=== PATIENT | female | born 1990 | race Caucasian/White ===

== ENCOUNTER 2017-04-28 18:36 | Emergency (ER) | payer MEDICAID | END 2017-04-28 20:22 | disposition left against medical advice (07) | LOC: ER 20:06 | DX: M79.673 Pain in unspecified foot (principal); Z53.21 Procedure and treatment not carried out due to patient leaving prior to being seen by health care provider ==

== ENCOUNTER 2017-04-29 18:20 | Emergency (ER) | payer MEDICAID ==
[~2017-04-29] VITALS: Ht 162.6 cm; Wt 59.0 kg
[2017-04-29] MEDS ORDERED: KETOROLAC 30MG/ML VIAL IV ONE (20:45)
[2017-04-29] MEDS ORDERED: CEFAZOLIN 1000MG PREMIX 50 ML IV ONE (20:45)
[2017-04-29] MEDS ORDERED: BACITRACIN ZINC OINT UDPKT TOP ONE (20:45)
[2017-04-29] MEDS ORDERED: LIDOCAINE HCL 1% 20ML VIAL (Pyxis) INJ MC ONE (20:45)
[2017-04-29 21:28] LABS: HCG SCREEN NEGATIVE
[2017-04-29 21:50] VITALS: BP 130/91
== END 2017-04-29 22:05 | disposition home or self-care (01) ==
LOC: ER 20:23
DX: S90.821A Blister (nonthermal), right foot, initial encounter (principal); B96.89 Other specified bacterial agents as the cause of diseases classified elsewhere; F41.9 Anxiety disorder, unspecified; J45.909 Unspecified asthma, uncomplicated; F31.9 Bipolar disorder, unspecified; X58.XXXA Exposure to other specified factors, initial encounter; Y93.89 Activity, other specified; Y92.89 Other specified places as the place of occurrence of the external cause; Y99.8 Other external cause status
CPT/HCPCS: 84703; 99283; X7700

== ENCOUNTER 2017-05-30 13:35 | Emergency (ER) | payer MEDICAID ==
[~2017-05-30] VITALS: Ht 165.1 cm; Wt 64.0 kg
[2017-05-30 13:37] VITALS: BP 112/72
== END 2017-05-30 14:06 | disposition left against medical advice (07) ==
LOC: ER 13:44
DX: Z53.21 Procedure and treatment not carried out due to patient leaving prior to being seen by health care provider (principal); F41.9 Anxiety disorder, unspecified; J45.909 Unspecified asthma, uncomplicated; F31.9 Bipolar disorder, unspecified; F20.9 Schizophrenia, unspecified

== ENCOUNTER 2017-05-30 17:37 | Emergency (ER) | payer MEDICAID ==
[~2017-05-30] VITALS: Ht 160 cm; Wt 49.0 kg
[2017-05-30 17:44] VITALS: BP 132/83
== END 2017-05-30 20:30 | disposition left against medical advice (07) ==
LOC: ER 17:59
DX: Z53.21 Procedure and treatment not carried out due to patient leaving prior to being seen by health care provider (principal); F41.9 Anxiety disorder, unspecified; J45.909 Unspecified asthma, uncomplicated; F31.9 Bipolar disorder, unspecified; F20.9 Schizophrenia, unspecified; F15.10 Other stimulant abuse, uncomplicated

== ENCOUNTER 2019-05-03 17:16 | Emergency (ER) | payer MEDICAID ==
[~2019-05-03] VITALS: Ht 160 cm; Wt 47.0 kg
[2019-05-03] MEDS ORDERED: SODIUM CHLORIDE 0.9% 1,000 ML IV ONE ×2 (18:36→20:30)
[2019-05-03] MEDS ORDERED: ONDANSETRON HCL 4MG/2ML INJ IV STA (18:36)
[2019-05-03 18:58] LABS: BASOPHILS % 1.2 % (0.0-2.0); HEMATOCRIT. 35.7 % (36.0-48.0); HEMOGLOBIN. 12.2 g/dL (12.0-16.0); LYMPHOCYTES % 31.1 % (20.0-50.0); MEAN CORPUSCULAR HEMOGLOBIN 29.6 pg (28.0-32.0); MEAN CORPUSCULAR VOLUME 86.7 fL (81.0-99.0); MEAN PLATELET VOLUME 7.3 fl (7.4-10.4); MONOCYTES % 9.2 % (2.0-8.0); NEUTROPHILS % 55.5 % (40.0-76.0); PLATELET 319 x1000/uL (130-400); RED BLOOD CELL COUNT 4.12 mill/uL (4.2-5.4); RED CELL DISTRIBUTION WIDTH 15.7 % (11.6-14.6)
[2019-05-03 19:01] LABS: HCG SCREEN NEGATIVE
[2019-05-03 19:05] LABS: CHLORIDE 108 mEq/L (98-107)
[2019-05-03 19:09] LABS: ETHANOL BLOOD < 10 mg/dL
[2019-05-03 19:13] LABS: CREATINE KINASE 185 IU/L (26-192)
[2019-05-03 19:16] LABS: CREATINE KINASE MB FRACTION 3.3 ng/mL (0.5-3.6)
[2019-05-04 05:00] VITALS: BP 124/62
[2019-05-04 05:04] LABS: *BARBITURATES SCREEN URINE NEGATIVE (NEGATIVE); *COCAINE SCREEN URINE NEGATIVE (NEGATIVE); METHADONE URINE SCREEN NEGATIVE (NEGATIVE)
[2019-05-04 05:05] LABS: CANNABINOID URINE SCREEN NEGATIVE (NEGATIVE); OPIATES URINE SCREEN NEGATIVE (NEGATIVE); PHENCYCLIDINE URINE SCREEN NEGATIVE (NEGATIVE)
[2019-05-04 05:21] LABS: *AMPHETAMINES SCREEN URINE PRESUMTIVE POSITIVE (NEGATIVE); *BENZODIAZEPINES SCREEN URINE PRESUMTIVE POSITIVE (NEGATIVE)
== END 2019-05-04 07:33 | disposition home or self-care (01) ==
LOC: ER 17:16
DX: T43.621A Poisoning by amphetamines, accidental (unintentional), initial encounter (principal); T40.991A Poisoning by other psychodysleptics [hallucinogens], accidental (unintentional), initial encounter; G92 Toxic encephalopathy; F41.9 Anxiety disorder, unspecified; F31.9 Bipolar disorder, unspecified; J45.909 Unspecified asthma, uncomplicated; F20.9 Schizophrenia, unspecified; Y92.488 Other paved roadways as the place of occurrence of the external cause
CPT/HCPCS: 36415; 70450; 80053; 80305; 80320; 82550; 82553; 83690; 84443; 84484; 84703; 85025; 93005; 96361; 96374; 99284; J2405; J7030; Z7610; G0480

== ENCOUNTER 2019-07-26 05:21 | Emergency (ER) | payer MEDICAID | END 2019-07-26 06:45 | disposition left against medical advice (07) | LOC: ER 06:28 | DX: F41.9 Anxiety disorder, unspecified (principal); Z53.21 Procedure and treatment not carried out due to patient leaving prior to being seen by health care provider ==

== ENCOUNTER 2023-10-02 07:41 | Emergency (ER) | payer MEDICAID ==
[~2023-10-02] VITALS: Ht 170.2 cm; Wt 65.0 kg
[2023-10-02 07:47] VITALS: BP 133/87; PULSE 96; RESP 18; TEMP 98.2; O2SAT 100
== END 2023-10-02 11:26 | disposition home or self-care (01) ==
LOC: ER 07:41
DX: N93.9 Abnormal uterine and vaginal bleeding, unspecified (principal); Z53.21 Procedure and treatment not carried out due to patient leaving prior to being seen by health care provider
CPT/HCPCS: 99281; 99283